=== PATIENT | male | born 1970 | race Caucasian/White ===

== ENCOUNTER 2017-03-05 05:55 | Emergency (ER) | payer BC ==
[2017-03-05 06:05] VITALS: TEMP 99.9
[2017-03-05 06:16] VITALS: BP 115/74
[2017-03-05] MEDS ORDERED: ALBUTEROL/IPRATROPIUM 1 VIAL SOL INH ONE (06:19)
[2017-03-05] MEDS ORDERED: ALBUTEROL/IPRATROPIUM 1 VIAL SOL ONE (06:20)
[2017-03-05 06:39] VITALS: PULSE 134; RESP 26; O2SAT 92
== END 2017-03-05 07:12 | disposition home or self-care (01) ==
LOC: ED 05:55
DX: J18.9 Pneumonia, unspecified organism (principal)
CPT/HCPCS: 71020; 99283; J7620